=== PATIENT | male | born 1940 | race Caucasian/White ===

== ENCOUNTER → 2017-08-19 | Outpatient (CLI) | payer MEDICARE, OTHER | PROVIDERS: ATTEND Otolaryngology | DX: R13.13 Dysphagia, pharyngeal phase (principal); R63.4 Abnormal weight loss | CPT/HCPCS: 74230; 92611; G8996; G8997; G8998 ==

== ENCOUNTER 2017-10-30 14:17 | Emergency (ER) | payer OTHER ==
--- NOTE | 2017-10-30 14:50 | EDPHY ---
H & P Time Seen by Provider: 10/30/17 14:50 HPI/ROS: CHIEF COMPLAINT: Dizziness since Thursday HISTORY OF PRESENT ILLNESS: Patient ex brings him in for feeling dizzy and off balance since Thursday. Patient describes having a headache which started 2 days ago associated with dizziness. Headache in his left posterior head and mild. Not thunderclap in onset or worst of life. He chronically has blurred vision in that has not changed. His dizziness is worse with certain positions and being upright and looking around and it is better when he lies down closes his eyes. Associated with some nausea but no vomiting or diarrhea. No neck pain or fever or neck stiffness. Symptoms moderate any still is able to walk around. No difficulty with strength or sensation or speech. He says "my balance was a little off." REVIEW OF SYSTEMS: Eye: Chronically blurred vision from cataracts unchanged ENT: no sore throat or ear symptoms, does not currently have facial pain, nasal drainage is currently clear. Recent sinus infection. Cardiac: no chest pain or syncope Pulmonary: no cough or SOB Abdomen: no vomiting, diarrhea, abdominal pain Musculoskeletal: no back pain or neck pain Skin: no rash Neuro: HPI Constitutional: no fever : no urinary symptoms A comprehensive 10 point review of systems is otherwise negative aside from elements mentioned in the history of present illness. PAST MEDICAL HISTORY: Hypertension, chronic sinusitis Social history: Here with his ex- General Appearance: Alert and conversant, cooperative. Eyes: No scleral icterus. Extraocular motion intact and pupils equal and reactive. ENT, Mouth: Normal mucous membranes. Normal tympanic membranes. No facial swelling or tenderness. Respiratory: Normal respiratory effort, breath sounds equal, lungs are clear to auscultation. Cardiovascular: Regular rate and rhythm. Gastrointestinal: Abdomen is soft and non tender. Neurological: Alert, face symmetric, normal motor and sensory in extremities. Normal speech, Romberg negative, [id number] normal bilaterally, heel-to- hu normal bilaterally. No pronator drift. Follows commands. Ambulatory. Does not have ataxia standing or truncal ataxia sitting in the bed. Skin: Warm and dry, no rashes. Musculoskeletal: No peripheral edema. No stiffness in the neck. Psychiatric: Not agitated. Mildly anxious. Emergency Department course/MDM: More likely to be peripheral than central vertigo given sudden onset with associated nausea and objectively normal neurologic exam. Blood pressure 161/82 , doubt hypertensive emergency. However given age and hypertension, will perform CT and CT angiography imaging. 1614: Age-appropriate brain and negative angiography per Dr. Lorenzana. 1623: Discussed with Dr. Rubio, his recommendation is discharge, likely peripheral vertigo, followup with neurology on Thursday or return if worse. No further diagnostics at this time. 1632: Results and plan discussed with patient and ex , they state they understand and are comfortable with the plan. Smoking Status: Never smoked Constitutional: Initial Vital Signs Temperature (C) 36.4 C 10/30/17 14:30 Heart Rate 80 10/30/17 14:30 Respiratory Rate 17 10/30/17 14:30 Blood Pressure 161/82 H 10/30/17 14:30 O2 Sat (%) 93 10/30/17 14:30 O2 Delivery Mode Room Air Allergies/Adverse Reactions: No Allergies [NKDA] Allergy (Verified 08/21/09 15:55) Home Medications: Medication Instructions Recorded Escitalopram Oxalate 10/30/17 Meclizine HCl [Meclizine HCl 25 mg 25 mg PO Q6 PRN #20 tab 10/30/17 (RX,OTC)] Medical Decision Making - Diagnostics EKG Interpretation: 12-lead EKG interpreted by me; official reading is in trace master. My interpretation is sinus rhythm with APC, right bundle branch block and left anterior fascicular block. Rate 67. Imaging Results: Imaging Impressions Head CT 10/30/17 15:17 Impression: 1. No acute intracranial findings. 2. Diffuse cerebral atrophy with periventricular and subcortical low attenuation consistent with chronic microvascular ischemic gliosis. 3. Acute on chronic right maxillary sinusitis. Findings discussed with Dr. Juaquin Ni, 10/30/2017 at 16:13. Head CTA 10/30/17 15:17 Impression: 1. No acute vascular findings. 2. Acute on chronic right maxillary sinusitis. 3. Apical bronchiectasis with scattered mucous plugging. 4. Degenerative changes in the cervical spine, including moderate spinal canal narrowing at multiple levels, including C3-C4, with multilevel moderate to severe neural foraminal stenosis. 5. Please see additional findings, as above. Stenoses are calculated using [place] Symptomatic Carotid Endarterectomy Trial (NASCET) criteria. Findings discussed with Dr. Juaquin Ni, 10/30/2017 at 16:13. Neck CTA 10/30/17 15:17 Impression: 1. No acute vascular findings. 2. Acute on chronic right maxillary sinusitis. 3. Apical bronchiectasis with scattered mucous plugging. 4. Degenerative changes in the cervical spine, including moderate spinal canal narrowing at multiple levels, including C3-C4, with multilevel moderate to severe neural foraminal stenosis. 5. Please see additional findings, as above. Stenoses are calculated using [place] Symptomatic Carotid Endarterectomy Trial (NASCET) criteria. Findings discussed with Dr. Juaquin Ni, 10/30/2017 at 16:13. Imaging: I viewed and interpreted images myself Differential Diagnosis: Differential diagnosis considered for dizziness including but not limited to hypertensive emergency, peripheral and central causes of vertigo, orthostatic causes including dehydration, and blood loss. - Data Points Laboratory Results: Laboratory Results 10/30/17 15:10 10/30/17 15:10 10/30/17 10/30/17 10/30/17 15:17 15:10 15:10 WBC 5.55 10^3/uL 10^3/uL (3.80-9.50) RBC 5.23 10^6/uL 10^6/uL (4.40-6.38) Hgb 15.9 g/dL g/dL (13.7-17.5) POC Hgb 16.7 gm/dL gm/dL (13.7-17.5) Hct 46.0 % % (40.0-51.0) POC Hct 49 % % (40-51) MCV 88.0 fL fL (81.5-99.8) MCH 30.4 pg pg (27.9-34.1) MCHC 34.6 g/dL g/dL (32.4-36.7) RDW 13.2 % % (11.5-15.2) Plt Count 208 10^3/uL 10^3/uL (150-400) MPV 11.1 fL fL (8.7-11.7) Neut % (Auto) 73.8 % % (39.3-74.2) Lymph % (Auto) 14.4 % L % (15.0-45.0) Dickson % (Auto) 10.8 % % (4.5-13.0) Eos % (Auto) 0.4 % L % (0.6-7.6) Baso % (Auto) 0.4 % % (0.3-1.7) Nucleat RBC Rel Count 0.0 % % (0.0-0.2) Absolute Neuts (auto) 4.10 10^3/uL 10^3/uL (1.70-6.50) Absolute Lymphs (auto) 0.80 10^3/uL L 10^3/uL (1.00-3.00) Absolute Monos (auto) 0.60 10^3/uL 10^3/uL (0.30-0.80) Absolute Eos (auto) 0.02 10^3/uL L 10^3/uL (0.03-0.40) Absolute Basos (auto) 0.02 10^3/uL 10^3/uL (0.02-0.10) Absolute Nucleated RBC 0.00 10^3/uL 10^3/uL (0-0.01) Immature Gran % 0.2 % % (0.0-1.1) Immature Gran # 0.01 10^3/uL 10^3/uL (0.00-0.10) POC Sodium 136 mEq/L mEq/L (135-145) Sodium 137 mEq/L mEq/L (135-145) POC Potassium 6.0 mEq/L H mEq/L (3.3-5.0) Potassium 4.6 mEq/L mEq/L (3.5-5.2) POC Chloride 100 mEq/L mEq/L (97-110) Chloride 99 mEq/L mEq/L (97-110) Carbon Dioxide 26 mEq/l mEq/l (22-31) Anion Gap 12 mEq/L mEq/L (8-16) POC BUN 17 mg/dL mg/dL (7-23) BUN 14 mg/dL mg/dL (7-23) Creatinine 0.9 mg/dL mg/dL (0.7-1.3) POC Creatinine 1.1 mg/dL mg/dL (0.7-1.3) Estimated GFR > 60 Glucose 99 mg/dL mg/dL (70-100) POC Glucose 109 mg/dL H mg/dL (70-100) Calcium 9.3 mg/dL mg/dL (8.5-10.4) Troponin I < 0.012 ng/mL ng/mL (0.000-0.034) Medications Given: Discontinued Medications Meclizine HCl (Meclizine Hcl) 25 mg PO EDNOW ONE Stop: 10/30/17 15:10 Last Admin: 10/30/17 15:49 Dose: 25 mg Point of Care Test Results: 10/30/17 15:17 POC Sodium 136 POC Potassium 6.0 H POC Chloride 100 POC BUN 17 POC Creatinine 1.1 POC Glucose 109 H Departure - Departure Disposition: Home, Routine, Self-Care Clinical Impression: Peripheral vertigo Qualifiers: Laterality: unspecified laterality Qualified Code(s): H81.399 - Other peripheral vertigo, unspecified ear Condition: Good Instructions: Vertigo (ED) Referrals: Hamilton Liu MD [Primary Care Provider] - As per Instructions Jonas Rubio DO [Medical Doctor] - As per Instructions Prescriptions: Meclizine HCl [Meclizine HCl 25 mg (RX,OTC)] 25 mg PO Q6 PRN #20 tab PRN Reason: Dizziness
[2017-10-30] MEDS ORDERED: MECLIZINE HCL 25 MG TAB PO ONE (15:09)
--- NOTE | 2017-10-30 15:13 | CPEKG ---
Heart Rate: 67 RR Interval: 896 P-R Interval: 168 QRSD Interval: 124 QT Interval: 424 QTC Interval: 448 P [place]: 0 QRS [place]: -48 T Wave [place]: 36 EKG Severity - ABNORMAL ECG - EKG Impression: SINUS RHYTHM EKG Impression: MULTIPLE ATRIAL PREMATURE COMPLEXES EKG Impression: RBBB AND LAFB Electronically Signed By: Juaquin Ni 30-Oct-2017 15:16:02
[2017-10-30] MEDS ORDERED: IOPAMIDOL (ISOVUE 370) 100 ML BTL IV ONE (15:22)
[2017-10-30 15:25] LABS: PLATELET COUNT 208 10^3/uL (150-400)
[2017-10-30] MEDS ORDERED: MECLIZINE HCL 25 MG TAB ONE (16:42)
[2017-10-30 17:04] VITALS: BP 142/78; PULSE 75; RESP 16; TEMP 98.1; O2SAT 96
== END 2017-10-30 17:04 | disposition home or self-care (01) ==
DX: H81.399 Other peripheral vertigo, unspecified ear (principal); I10 Essential (primary) hypertension
CPT/HCPCS: 70450; 70496; 70498; 93005; 99285; Q9967; 82947-QW

== ENCOUNTER → 2019-01-13 | Outpatient (CLI) | payer OTHER | LOC: FIMAGING 10:27 | PROVIDERS: ATTEND Family Medicine | DX: M25.512 Pain in left shoulder (principal); M50.321 Other cervical disc degeneration at C4-C5 level ==